=== PATIENT | female | born 1940 | race Caucasian/White ===

== ENCOUNTER 2020-07-09 07:17 | Outpatient (REF) | payer MEDICARE, SELFPAY | END 2020-07-09 07:18 | disposition home or self-care (01) | LOC: HO.LAB 07:17 | PROVIDERS: Visit Provider Internal Medicine | DX: Z20.828 Contact with and (suspected) exposure to other viral communicable diseases (principal) | CPT/HCPCS: C9803; U0003 ==

== ENCOUNTER 2021-01-13 08:05 | Outpatient (REF) | payer MEDICARE, SELFPAY ==
[2021-01-13 09:18] LABS: MANUAL DIFF FLAG NO
[2021-01-13 09:25] LABS: Basophils Percent Auto 0.7 % (0-2); Eosinophils Absolute Auto 0.2 X10*3/uL (0.0-0.4); Eosinophils Percent Auto 3.1 % (0-4); Hematocrit 43.6 % (37-47); Hemoglobin 14.4 g/dl (12.0-16.0); Imm Gran Abs Auto 0.01 X10*3/uL (0.00-0.03); Imm Gran Pct Auto 0.2 % (0.0-0.4); Lymphocytes Absolute Auto 1.3 X10*3/uL (1.2-4.9); Lymphocytes Percent Auto 23.2 % (20-40); Mean Corpuscular Hemoglobin 31.4 pg (27.0-33.0); Mean Corpuscular Volume 95.2 fL (80-98); Mean Platelet Volume 10.5 fL (9.4-12.3); Monocytes Absolute Auto 0.6 X10*3/uL (0.1-1.2); Monocytes Percent Auto 10.5 % (2-11); Neutrophils Absolute Auto 3.5 X10*3/uL (2.0-8.3); Neutrophils Percent Auto 62.3 % (45-73); Platelet Count 270 X10*3/uL (160-400); Red Blood Count 4.58 X10*6/uL (4.20-5.50); Red Cell Distribution Width 13.4 % (11.0-16.0); White Blood Count 5.6 X10*3/uL (4.8-10.8)
[2021-01-13 09:49] LABS: Alanine Aminotransferase 21 U/L (0-31); Albumin Level 3.7 g/dL (3.5-5.0); Alkaline Phosphatase 70 U/L (39-117); Anion Gap 12 (12-20); Aspartate Amino Transferase 24 U/L (5-31); Bilirubin Total 0.9 mg/dL (0.0-1.0); Blood Urea Nitrogen 20 mg/dL (9-16); Carbon Dioxide 29 mmol/L (22-29); Chloride 105 mmol/L (96-108); Cholesterol 122 mg/dL; Estimated Glomerular Filt Rate > 60; Glucose Random 118 mg/dL (60-115); HDL Cholesterol 41 mg/dL; LDL Cholesterol Calculated 63 mg/dl; Potassium 4.2 mmol/L (3.3-5.1); Sodium 142 mmol/L (135-145); Total Protein 7.5 g/dL (6.5-8.0); Triglycerides 90 mg/dL
[2021-01-13 10:11] LABS: TSH reflex Free T4 2.38 uIU/mL (0.32-4.0); Vitamin D 25-OH Total 27.3 ng/mL (>30)
[2021-01-13 14:35] LABS: Creatinine Urine 110.41 mg/dL; Microalbum/Creatinine Ratio Ur 79.7 ug/mg cr
== END 2021-01-13 08:06 | disposition home or self-care (01) ==
LOC: HO.10HDL 08:05
PROVIDERS: Visit Provider Internal Medicine
DX: Z00.00 Encounter for general adult medical examination without abnormal findings (principal); E11.9 Type 2 diabetes mellitus without complications; E78.00 Pure hypercholesterolemia, unspecified; I10 Essential (primary) hypertension; E55.9 Vitamin D deficiency, unspecified
CPT/HCPCS: 36415; 80053; 80061; 82043; 82306; 84443; 85025

== ENCOUNTER 2021-03-20 09:48 | Outpatient (REF) | payer MEDICARE, SELFPAY ==
--- NOTE | ~2021-03-20 | MM_ITS ---
EXAMINATION: MM SCREENING DIGITAL BREAST TOMOSYNTHESIS, BILATERAL CLINICAL INFORMATION: Screening. Asymptomatic. The lifetime risk of breast cancer based on the Tyrer-Cuzick Model is 1%. COMPARISON: Mammography: 03/14/2020, 12/13/2018, 12/12/2017 TECHNIQUE: Digital breast tomosynthesis is performed in both the craniocaudal and mediolateral oblique views along with computer-aided detection (CAD). Synthesized 2D images are generated from the tomosynthesis. Additional left CC view is provided. FINDINGS: The breasts are almost entirely fatty (ACR BI-RADS breast composition Category a). There are no significant masses, abnormal calcifications, or other abnormalities. The axilla and skin contours are unremarkable. No significant changes. MM/MM tomosynthesis screening BI IMPRESSION: No mammographic evidence of malignancy. ASSESSMENT: BI-RADS 1: Negative RECOMMENDATION: Routine annual mammography screening. This patient's information was entered into a reminder system with a target due date for their next mammogram.
== END 2021-03-20 09:49 | disposition home or self-care (01) ==
LOC: HO.MAMMO 09:48
PROVIDERS: PCP Internal Medicine; Visit Provider Internal Medicine
DX: Z12.31 Encounter for screening mammogram for malignant neoplasm of breast (principal)
CPT/HCPCS: 77063; 77067

== ENCOUNTER 2022-03-23 09:37 | Outpatient (REF) | payer MEDICARE, SELFPAY ==
--- NOTE | ~2022-03-23 | MM_ITS ---
EXAMINATION: MM SCREENING DIGITAL BREAST TOMOSYNTHESIS, BILATERAL CLINICAL INFORMATION: Screening. Asymptomatic. The lifetime risk of breast cancer based on the Tyrer-Cuzick Model is 0.6%. COMPARISON: Mammography: March 20, 2021 and studies dating back to November 19, 2013 TECHNIQUE: Digital breast tomosynthesis is performed in both the craniocaudal and mediolateral oblique views along with computer-aided detection (CAD). Synthesized 2D images are generated from the tomosynthesis. FINDINGS: The breasts are almost entirely fatty (ACR BI-RADS breast composition Category a). There are no significant masses, abnormal calcifications, or other abnormalities. MM/MM tomosynthesis screening BI IMPRESSION: No significant changes from prior exam. ASSESSMENT: BI-RADS 1: Negative RECOMMENDATION: Routine annual mammography screening. This patient's information was entered into a reminder system with a target due date for their next mammogram.
== END 2022-03-23 09:38 | disposition home or self-care (01) ==
LOC: HO.MAMMO 09:37
PROVIDERS: Visit Provider Internal Medicine
DX: Z12.31 Encounter for screening mammogram for malignant neoplasm of breast (principal)
CPT/HCPCS: 77063; 77067

== ENCOUNTER 2022-04-13 07:57 | Outpatient (REF) | payer MEDICARE, SELFPAY ==
[2022-04-13 10:45] LABS: Hematocrit 38.9 % (37.0-47.0); Hemoglobin 14.1 g/dl (12.0-16.0); Mean Corpuscular HGB Conc 36.2 g/dl (31.0-35.0); Mean Corpuscular Hemoglobin 33.9 pg (27.0-33.0); Mean Corpuscular Volume 93.5 fL (80.0-98.0); Mean Platelet Volume 10.4 fL (9.4-12.3); Platelet Count 289 X10*3/uL (160-400); Red Blood Count 4.16 X10*6/uL (4.20-5.50); White Blood Count 5.9 X10*3/uL (4.8-10.8)
[2022-04-13 11:01] LABS: Alanine Aminotransferase 25 U/L (0-31); Albumin Level 3.6 g/dL (3.5-5.0); Alkaline Phosphatase 61 U/L (39-117); Anion Gap 15 (12-20); Aspartate Amino Transferase 26 U/L (5-31); Bilirubin Total 0.9 mg/dL (0.0-1.0); Blood Urea Nitrogen 19 mg/dL (9-16); Carbon Dioxide 27 mmol/L (22-29); Chloride 100 mmol/L (96-108); Cholesterol 113 mg/dL; Estimated Glomerular Filt Rate > 60; Glucose Fasting 101 mg/dL (60-99); HDL Cholesterol 35 mg/dL; LDL Cholesterol Calculated 63 mg/dl; Potassium 4.6 mmol/L (3.3-5.1); Sodium 137 mmol/L (135-145); Total Protein 7.4 g/dL (6.5-8.0); Triglycerides 75 mg/dL
[2022-04-13 11:22] LABS: TSH reflex Free T4 2.53 uIU/mL (0.32-4.0)
[2022-04-13 14:15] LABS: Creatinine Urine 108.04 mg/dL; Microalbum/Creatinine Ratio Ur 11.1 ug/mg cr
== END 2022-04-13 07:58 | disposition home or self-care (01) ==
LOC: HO.10HDL 07:57
PROVIDERS: Visit Provider Internal Medicine
DX: Z00.00 Encounter for general adult medical examination without abnormal findings (principal); I10 Essential (primary) hypertension; R53.83 Other fatigue
CPT/HCPCS: 36415; 80053; 80061; 82043; 84443; 85027

== ENCOUNTER 2023-03-25 08:21 | Outpatient (REF) | payer MEDICARE, SELFPAY | END 2023-03-25 08:22 | disposition home or self-care (01) | LOC: HO.MAMMO 08:21 | PROVIDERS: PCP Internal Medicine; Visit Provider Internal Medicine | DX: Z12.31 Encounter for screening mammogram for malignant neoplasm of breast (principal) | CPT/HCPCS: 77063; 77067 ==

== ENCOUNTER → 2023-03-25 08:30 | Outpatient (BNV) | payer MEDICARE, SELFPAY | PROVIDERS: PCP Internal Medicine; Visit Provider Radiology Diagnostic Radiology | DX: Z12.31 Encounter for screening mammogram for malignant neoplasm of breast (principal) | CPT/HCPCS: 77063; 77067 ==

== ENCOUNTER 2023-05-03 07:50 | Outpatient (REF) | payer MEDICARE, SELFPAY ==
[2023-05-03 11:03] LABS: MANUAL DIFF FLAG NO
[2023-05-03 11:04] LABS: Basophils Absolute Auto 0.1 X10*3/uL (0.0-0.2); Basophils Percent Auto 0.9 % (0-2); Eosinophils Absolute Auto 0.2 X10*3/uL (0.0-0.4); Eosinophils Percent Auto 2.8 % (0-4); Hematocrit 38.1 % (37.0-47.0); Hemoglobin 14.2 g/dl (12.0-16.0); Imm Gran Abs Auto 0.03 X10*3/uL (0.00-0.03); Imm Gran Pct Auto 0.5 % (0.0-0.4); Lymphocytes Absolute Auto 1.3 X10*3/uL (1.2-4.9); Mean Corpuscular HGB Conc 37.3 g/dl (31.0-35.0); Mean Corpuscular Hemoglobin 36.3 pg (27.0-33.0); Mean Corpuscular Volume 97.4 fL (80.0-98.0); Mean Platelet Volume 11.1 fL (9.4-12.3); Monocytes Absolute Auto 0.6 X10*3/uL (0.1-1.2); Neutrophils Absolute Auto 3.6 x10*3/uL (2.0-8.3); Neutrophils Percent Auto 62.8 % (45-73); Platelet Count 248 X10*3/uL (160-400); Red Blood Count 3.91 X10*6/uL (4.20-5.50); Red Cell Distribution Width 13.7 % (11.0-16.0); White Blood Count 5.7 X10*3/uL (4.8-10.8)
[2023-05-03 11:28] LABS: Estimated Average Glucose 128 mg/dL; Hemoglobin A1c % 6.1 % (<6.0)
[2023-05-03 11:37] LABS: Creatinine Urine 27.52 mg/dL; Microalbumin Urine < 5.0 mg/L
[2023-05-03 11:38] LABS: Alanine Aminotransferase 19 U/L (0-31); Albumin Level 3.6 g/dL (3.5-5.0); Alkaline Phosphatase 62 U/L (39-117); Anion Gap 13 (12-20); Aspartate Amino Transferase 25 U/L (5-31); Bilirubin Total 0.8 mg/dL (0.0-1.0); Blood Urea Nitrogen 23 mg/dL (9-16); Calcium 10.2 mg/dL (8.4-10.2); Carbon Dioxide 26 mmol/L (22-29); Chloride 103 mmol/L (96-108); Cholesterol 110 mg/dL (<200); Estimated Glomerular Filt Rate > 60; Glucose Random 102 mg/dL (60-115); HDL Cholesterol 38 mg/dL (>40); LDL Cholesterol Calculated 57 mg/dL (<100); Potassium 3.9 mmol/L (3.3-5.1); Sodium 138 mmol/L (135-145); Total Protein 7.4 g/dL (6.5-8.0); Triglycerides 75 mg/dL (<150)
== END 2023-05-03 07:51 | disposition home or self-care (01) ==
LOC: HO.10HDL 07:50
PROVIDERS: Visit Provider Internal Medicine
DX: I10 Essential (primary) hypertension (principal); E78.2 Mixed hyperlipidemia; E11.9 Type 2 diabetes mellitus without complications
CPT/HCPCS: 36415; 80053; 80061; 82043; 82570; 83036; 85025

== ENCOUNTER 2024-03-30 09:57 | Outpatient (REF) | payer MEDICARE, SELFPAY ==
--- NOTE | ~2024-03-30 | MM_ITS ---
EXAMINATION: MM SCREENING DIGITAL BREAST TOMOSYNTHESIS, BILATERAL CLINICAL INFORMATION: Screening. Asymptomatic. COMPARISON: Mammography: Comparison is made with available priors TECHNIQUE: Digital breast tomosynthesis is performed in both the craniocaudal and mediolateral oblique views along with computer-aided detection (CAD). Synthesized 2D images are generated from the tomosynthesis. FINDINGS: There are scattered areas of fibroglandular density (ACR BI-RADS breast composition Category b). There are no significant masses, abnormal calcifications, or other abnormalities. MM/MM tomosynthesis screening BI IMPRESSION: No mammographic evidence of malignancy. ASSESSMENT: BI-RADS BI-RADS 1 - Negative RECOMMENDATION: Routine annual mammography screening. 1 year F/U This examination should not preclude the clinical evaluation of a suspicious palpable abnormality. This patient's information was entered into a reminder system with a target due date for their next mammogram. Electronically signed by: Catrachita Rey DO 04/20/2024 10:40 PM EDT
== END 2024-03-30 09:58 | disposition home or self-care (01) ==
LOC: HO.MAMMO 09:57
PROVIDERS: PCP Internal Medicine; Visit Provider Internal Medicine
DX: Z12.31 Encounter for screening mammogram for malignant neoplasm of breast (principal)
CPT/HCPCS: 77063; 77067

== ENCOUNTER → 2024-03-30 10:00 | Outpatient (BNV) | payer MEDICARE, SELFPAY | PROVIDERS: PCP Internal Medicine; Visit Provider Internal Medicine | DX: Z12.31 Encounter for screening mammogram for malignant neoplasm of breast (principal) | CPT/HCPCS: 77063; 77067 ==

== ENCOUNTER 2024-04-24 07:49 | Outpatient (REF) | payer MEDICARE, SELFPAY ==
[2024-04-24 08:00] LABS: MANUAL DIFF FLAG NO
[2024-04-24 08:26] LABS: Basophils Absolute Auto 0.1 X10*3/uL (0.0-0.2); Basophils Percent Auto 0.8 % (0-2); Eosinophils Absolute Auto 0.1 X10*3/uL (0.0-0.4); Eosinophils Percent Auto 2.1 % (0-4); Hematocrit 42.5 % (37.0-47.0); Imm Gran Abs Auto 0.01 X10*3/uL (0.00-0.03); Imm Gran Pct Auto 0.2 % (0.0-0.4); Lymphocytes Absolute Auto 1.5 X10*3/uL (1.2-4.9); Lymphocytes Percent Auto 24.3 % (20-40); Mean Corpuscular HGB Conc 32.9 g/dl (31.0-35.0); Mean Corpuscular Hemoglobin 30.8 pg (27.0-33.0); Mean Corpuscular Volume 93.4 fL (80.0-98.0); Monocytes Absolute Auto 0.8 X10*3/uL (0.1-1.2); Monocytes Percent Auto 12.3 % (2-11); Neutrophils Absolute Auto 3.7 x10*3/uL (2.0-8.3); Neutrophils Percent Auto 60.3 % (45-73); Platelet Count 323 X10*3/uL (160-400); Red Blood Count 4.55 X10*6/uL (4.20-5.50); Red Cell Distribution Width 13.7 % (11.0-16.0); White Blood Count 6.2 X10*3/uL (4.8-10.8)
[2024-04-24 08:36] LABS: Estimated Average Glucose 131 mg/dL; Hemoglobin A1C 155.0812 umol/L; Hemoglobin A1c % 6.2 % (<6.0)
[2024-04-24 08:48] LABS: Alanine Aminotransferase 26 U/L (0-31); Albumin Level 3.6 g/dL (3.5-5.0); Alkaline Phosphatase 90 U/L (39-117); Anion Gap 11 (12-20); Aspartate Amino Transferase 27 U/L (5-31); Bilirubin Total 0.6 mg/dL (0.0-1.0); Blood Urea Nitrogen 23 mg/dL (9-16); Calcium 10.8 mg/dL (8.4-10.2); Carbon Dioxide 30 mmol/L (22-29); Chloride 103 mmol/L (96-108); Cholesterol 105 mg/dL (<200); Estimated Glomerular Filt Rate > 60; Glucose Random 116 mg/dL (60-115); HDL Cholesterol 35 mg/dL (>40); LDL Cholesterol Calculated 56 mg/dL (<100); Potassium 4.5 mmol/L (3.3-5.1); Sodium 139 mmol/L (135-145); Total Protein 7.6 g/dL (6.5-8.0); Triglycerides 70 mg/dL (<150)
[2024-04-24 09:06] LABS: Creatinine Urine 29.31 mg/dL; Microalbum/Creatinine Ratio Ur 27.2 ug/mg cr (<30)
== END 2024-04-24 07:50 | disposition home or self-care (01) ==
LOC: HO.LAB 07:49
PROVIDERS: PCP Internal Medicine; Visit Provider Internal Medicine
DX: E11.9 Type 2 diabetes mellitus without complications (principal); I10 Essential (primary) hypertension; E78.2 Mixed hyperlipidemia
CPT/HCPCS: 36415; 80053; 80061; 82043; 82570; 83036; 85025

== ENCOUNTER 2025-01-31 01:03 | Emergency (ER) | payer MEDICARE, SELFPAY ==
[2025-01-31 01:04] VITALS: BP 127/70; PULSE 99; RESP 17; TEMP 36.5; O2SAT 98; BMI 33.9
--- NOTE | 2025-01-31 01:18 | ED_ITS ---
HPI - Allergic Reaction General Chief complaint: Skin/Abscess/Foreign Body Stated complaint: hives/bumps on arms and body Time Seen by Provider: 01/31/25 01:07 Source: patient and family Mode of arrival: ambulatory Limitations: no limitations History of Present Illness ED Provider: ESTER BROWN narrative: 84 yo female with PMH of HTN, HLD who was working in her garden 2 days ago didn't notice anything unusual but started with itchy hives on UE and her chest/abdomen. No oral swelling or diff breathing. She notes she tried some gold mckay powder but no relief. She does have hx of season allergies and has taken claritin in the past. MD complaint: hives Onset (ago): day(s) (2) Exposure: plant Symptoms: rash and itching Severity: moderate Treatment prior to arrival: none Previous Allergic Reaction History: none Related Data Previous Rx's ?Medication ?Instructions ?Recorded famotidine 20 mg tablet (Pepcid) 20 mg PO DAILY abdomi nal 01/31/25 discomfort #10 tabs hydrocortisone 1 % topical cream 1 appl topical TID MI N rash #28.35 01/31/25 grams prednisone 20 mg tablet 40 mg (2 x 20 mg) PO DAILY 4 days 01/31/25 #8 tabs Allergies Allergy/AdvReac Type Severity Reaction Status Date / Time No Known Allergies Allergy Verified 01/31/25 01:08 Review of Systems Review of Systems: Constitutional : No Fever, No Chills ENT/Mouth : no oral swelling, No Hoarseness, No Swallowing Difficulty Eyes: No Eye Pain, No Swelling, No Redness Cardiovascular : No Chest Pain, No SOB Respiratory : No Cough, No Sputum Gastrointestinal : No Nausea, No Vomiting, No Diarrhea, No abdominal Pain Genitourinary : No Dysuria, No Urinary Frequency Musculoskeletal : No Joint Swelling Skin : No Skin Lesions, positive rash All other systems reviewed and are negative FOR[facility]LY [facility] Past Medical History Attestation statement: The following information was validated with the patient. Source: old records reviewed Medical History Hyperlipidemia HTN (hypertension) Social History Social History (Updated 01/31/25 @ 01:22 by Gloria Brannon DO) Patient Tobacco Use Status: Tobacco use Unknown Physical Exam ED Vital Signs: Vital Signs - 24 hr 01/31/25 01:04 Temperature 97.7 F Pulse Rate 99 Respiratory Rate 17 Blood Pressure 127/70 Pulse Oximetry 98 Oxygen Delivery Method Room Air BMI result Body Mass Index 33.9 Appearance: Alert. Oriented X3. No acute distress. Eyes: Pupils equal, round and reactive to light. ENT: Pharynx normal. No swelling Neck: Normal inspection. Neck supple. CVS: Normal heart rate and rhythm. Pulses normal. Respiratory: No respiratory distress. Breath sounds normal. Abdomen: Soft and nontender. Skin: Skin warm and dry. Normal skin color. Extremities: No lower extremity edema. raised hives on both inner arms but no cellulitis, she has similar hives noted on anterior trunk Neuro: Oriented X 3. No motor deficit. No sensory deficit. Medical Decision Making Medical Decision Making MDM Narrative: 84 yo female with PMH of HTN, HLD here with hives on trunk and arms after working in the garden. No resp or oral issues, no signs of cellulitis. She has been okay with claritin in the past - at this time will start on topical hydrocortisone as well as claritin, pepcid, prednisone. Given precautions to return and instructed to not use same gardening clothes Differential Diagnosis Differential Diagnoses: The differential diagnosis associated with the presentation includes hives, allergic reaction Admission/Observation Consideration of admission/observation: Escalation of care including admission/observation considered no signs of anaphylaxis and no resp issues - stable for outpatient meds Independent Historian Clinical information obtained from an independent historian. History obtained from or confirmed by: Other (daughter) External Record Review External record reviewed: Outpatient record Prescription Management I considered prescription management with: Other Discharge Plan Discharge Clinical Impression: Allergic reaction Qualifiers: Encounter type: initial encounter Qualified Code(s): T78.40XA - Allergy, unspecified, initial encounter Patient Disposition: Home, Self-Care Instructions: General Allergic Reaction (ED) Additional Instructions: please make sure you are not re-contaminating yourself with anything from the garden take all medications as prescribed take the prednisone with food return for worsening symptoms, difficulty breathing or swallowing PLEASE BUY CLARITIN 10MG OVER THE COUNTER TAKE FOR 10 DAYS Prescriptions: New prednisone 20 mg tablet 40 mg PO DAILY 4 Days Qty: 8 0RF famotidine [Pepcid] 20 mg tablet 20 mg PO DAILY Qty: 10 0RF hydrocortisone 1 % cream 1 appl topical TID PRN (Reason: rash) Qty: 28.35 0RF Rx Instructions: do not apply to face Print Language: Slovenian
[2025-01-31 01:40] VITALS: BP 127/70; PULSE 99; RESP 17; TEMP 36.5; O2SAT 98
== END 2025-01-31 01:41 | disposition home or self-care (01) ==
PROVIDERS: Emergency Provider Emergency Medicine; PCP Internal Medicine
DX: L50.0 Allergic urticaria (principal); L29.9 Pruritus, unspecified
CPT/HCPCS: 99283; 99284

== ENCOUNTER 2025-04-05 10:50 | Outpatient (REF) | payer MEDICARE, SELFPAY ==
--- NOTE | ~2025-04-05 | MM_ITS ---
EXAMINATION: MM SCREENING DIGITAL BREAST TOMOSYNTHESIS, BILATERAL CLINICAL INFORMATION: Screening. Asymptomatic. COMPARISON: Mammography: Comparison is made with available priors TECHNIQUE: Digital breast mammography with tomosynthesis is performed in both the craniocaudal and mediolateral oblique views along with computer-aided detection (CAD). FINDINGS: There are scattered areas of fibroglandular density (ACR BI-RADS breast composition Category b). There are no significant masses, abnormal calcifications, or other abnormalities. MM/MM tomosynthesis screening BI IMPRESSION: No mammographic evidence of malignancy. ASSESSMENT: BI-RADS BI-RADS 1 - Negative RECOMMENDATION: Routine annual mammography screening. 1 year F/U This examination should not preclude the clinical evaluation of a suspicious palpable abnormality. This patient's information was entered into a reminder system with a target due date for their next mammogram. Electronically signed by: Catrachita Rey DO 04/08/2025 05:40 PM EDT
--- OUTSIDE RECORDS SUMMARY | 2025-04-05 11:54 | XMS_ITS | Patient Health Record ---
Author Organization [facility] Address [address] [place] [address] Care Team Providers Care Airport Maintenance Chief Name Role Phone Ladarius Allen MD Primary Care Provider Unavailab Diomedes Painting Unavailable [phone] Reason For Referral No Information Medications Medication SIG (Take, Route, Frequency, Duration) Notes Start Date End Date Status amLODIPine Besylate 5 MG 1 tablet Orally Once a day Active Losartan Potassium-HCTZ 100-25 MG 1 tablet Orally Once a day Active Colyte w Flavor Packs 240 GM as directed Orally as directed for 1 day(s) 10/05/2014 Active Atorvastatin Calcium 40 MG 1 tablet Oral ly Once a day Active Citalopram Hydrobromide 20 MG 1 tablet Orally Once a day Active Immunizations Vaccine Route Administration Date Status Comme nts Flu vaccine no Preserv 3 and > Unknown 06/12/2014 Admin istered Problems Problem Type SNOMED Code ICD Code Onset Dates Problem Status W/U Status Risk Notes Problem Pre-surgery evaluation (563228606) Other specified pre-operative examination (V72.83) Active confirmed Problem Family History of Cancer of Colon (Situation) (147731592) Family history of colon cancer (V16.0) Active confirmed Problem Colon cancer screening (656347912) Colon cancer screening (V76.51) Active confirmed Problem Hypertension (13053152) Hypertension (401.9) Active confirmed Plan Of Treatment Future Test Test Name Order Date COLONOSCOPY 10/03/2014 Insurance Providers Payer Name Payer Address Payer Phone Subscriber Number Group Number Insured Name Patient Relationship to Insured Coverage Start Date Coverage End Date MEDICARE OF [place] [address] [place] [address] [id number] BRAVO HOFFMANN Self - patient is the insured [facility] [address] [place] [address] [phone] [id number] BRAVO HOFFMANN Self - patient is the insured Medical (General) History Medical History History ICD Code Colonoscopy 10-02-2009 and 200 4 neg except for hyperplastic polyps, diverticulosis, and internal hemorrhoids Hypertension Hyperlipidemia Depression Denies IA,DM,CVA,Lung disease,renal dise ase Surgical History Surgery Date(Month/Year) complete hysterectomy surgery on left leg for a fracture
== END 2025-04-05 10:51 | disposition home or self-care (01) ==
LOC: HO.MAMMO 10:50
PROVIDERS: PCP Internal Medicine; Visit Provider Internal Medicine
DX: Z12.31 Encounter for screening mammogram for malignant neoplasm of breast (principal)
CPT/HCPCS: 77063; 77067

== ENCOUNTER → 2025-04-05 11:00 | Outpatient (BNV) | payer MEDICARE, SELFPAY | PROVIDERS: PCP Internal Medicine; Visit Provider Internal Medicine | DX: Z12.31 Encounter for screening mammogram for malignant neoplasm of breast (principal) | CPT/HCPCS: 77063; 77067 ==

== ENCOUNTER 2025-04-17 07:41 | Outpatient (REF) | payer MEDICARE, SELFPAY ==
--- OUTSIDE RECORDS SUMMARY | 2025-02-15 06:10 | XMS_ITS ---
Author Organization [facility] Address [facility] [place], [place] [id number] Care Team Providers Care Color Receiver Name Role Phone JULIUS ROBERTS Primary Care Provider [phone] REASON FOR VISIT Medication confusion Encounters Encounter Location Date Provider Diagnosis [address] [address] 02/15/2025 JULIUS ROBERTS PLAN OF TREATMENT Next Appt Details Provider Name:JULIUS ROBERTS , 05/29/2025 01:30:00 PM, [address] [place] [address], [phone], Provider Name:JULIUS ROBERTS , 05/29/2025 02:00:00 PM, [address] [place] [address], [phone],
--- OUTSIDE RECORDS SUMMARY | 2025-02-19 07:09 | XMS_ITS ---
Author Organization [facility] Address [facility] [place], [place] [id number] Care Team Providers Care Engineer Design And Construction Name Role Phone JULIUS ROBERTS Primary Care Provider [phone] REASON FOR VISIT (FYI) Betamethasone cream Encounters Encounter Location Date Provider Diagnosis [address] [address] 02/19/2025 JULIUS ROBERTS PLAN OF TREATMENT Next Appt Details Provider Name:JULIUS ROBERTS , 05/29/2025 01:30:00 PM, [address] [place] [address], [phone], Provider Name:JULIUS ROBERTS , 05/29/2025 02:00:00 PM, [address] [place] [address], [phone],
--- OUTSIDE RECORDS SUMMARY | 2025-02-19 14:40 | XMS_ITS ---
Author Organization [facility] Address [address] [place], [place] [id number] Care Team Providers Care Electric Deicer Assembler Name Role Phone JULIUS ROBERTS Primary Care Provider [phone] REASON FOR VISIT RE:Medication confusion MEDICATIONS Medication SIG (Take, Route, Frequency, Duration) Notes Start Date End Date Status Betamethasone Valerate 0.1 % 1 application Externally Twice a day for 30 day(s) 02/20/2025 Active Encounters Encounter Location Date Provider Diagnosis [address] [address] 02/19/2025 JULIUS KWONFORD Rash R21 ASSESSMENTS Encounter Date Diagnosis Assessment Notes Treatment Notes Treatment Clinical Notes Section Notes 02/19/2025 Rash (ICD-10 - R21) PLAN OF TREATMENT Medication Medication Name Sig Start Date Stop Date Notes Betamethasone Valerate 0.1 % 1 applicati on Externally Twice a day for 30 day(s) 02/20/2025 Next Appt Details Provider Name:JULIUS Mathew ARMANDO , 05/29/2025 01:30:00 PM, [address] [place] [address], [phone], Provider Name:JULIUS KWONFORD , 05/29/2025 02:00:00 PM, [address] [place] [address], [phone],
--- OUTSIDE RECORDS SUMMARY | 2025-03-07 05:45 | XMS_ITS ---
Author Organization [facility] Address [address] [place], [place] [id number] Care Team Providers Care Blacksmith Supervisor Name Role Phone JULIUS ROBERTS Primary Care Provider ALLERGIES No Known Allergies REASON FOR VISIT 4mo MEDICATIONS Medication SIG (Take, Route, Frequency, Duration) Notes Start Date End Date Status Valsartan-hydroCHLOROthiazi de 160-25 MG 1 tablet Orally Once a day Active Citalopram Hydrobromide 10 MG 1 tablet Orally Once a day for 90 days Active Atorvastatin Calcium 40 MG 1 tablet Oral ly Once a day Active Betamethasone Valerate 0.1 % 1 application Externally Twice a day for 30 day(s) 02/20/2025 Active amLODIPine Besylate 2.5 MG 1 tablet Oral Once a day 11/29/2022 Active Flonase Allergy Relief 50 MCG/ACT spray 2 spray by intranasal route every day in each nostril Nasal 01/29/2015 Active SOCIAL HISTORY Tobacco Use: Social History Observation Description Date Details (start date - stop date) Former Smoker NA - NA Sex Assigned At : Social History Observation Description Sex Assigned At Unknown Smoking Question Answer Notes Are you a: former smoker How long has it been since you last smoked? > 10 years VITAL SIGNS Height 63.50 in 03/07/2025 Weight 182.0 lbs 03/07/2025 Blood pressure systolic 122 mm Hg 03/07/20 25 Blood pressure diastolic 70 mm Hg 025 BMI 31.73 kg/m2 03/07/2025 Encounters Encounter Location Date Provider Diagnosis [facility] [address] [place] [address] 03/07/2025 JULIUS ROBERTS Essential (primary) hypertension I10 ; Type 2 diabetes mellitus without complication, without long-term current use of insulin E11.9 ; Mixed hyperlipidemia E78.2 and Rash R21 ASSESSMENTS Encounter Date Diagnosis Assessment Notes Treatment Notes Treatment Clinical Notes Section Notes 03/07/2025 Essential (primary) hypertension (ICD-10 - I10) 1. Hypertension: Well-controlled on present therapy. No changes made today 2. Type 2 diabetes mellitus: Will update A1c with current diet control 3. Hyperlipidemia: Will update profile on atorvastatin 4. Rash: Appears resolved. Will taper off betamethasone ointment 03/07/2025 Type 2 diabetes mellitus without complication, without long-term current use of insulin (ICD-10 - E11.9) 1. Hypertension: Well-controlled on present therapy. No changes made today 2. Type 2 diabetes mellitus: Will update A1c with current diet control 3. Hyperlipidemia: Will update profile on atorvastatin 4. Rash: Appears resolved. Will taper off betamethasone ointment 03/07/2025 Mixed hyperlipidemia (ICD-10 - E78.2) 1. Hypertension: Well-controlled on present therapy. No changes made today 2. Type 2 diabetes mellitus: Will update A1c with current diet control 3. Hyperlipidemia: Will update profile on atorvastatin 4. Rash: Appears resolved. Will taper off betamethasone ointment 03/07/2025 Rash (ICD-10 - R21) 1. Hypertension: Well-controlled on present therapy. No changes made today 2. Type 2 diabetes mellitus: Will update A1c with current diet control 3. Hyperlipidemia: Will update profile on atorvastatin 4. Rash: Appears resolved. Will taper off betamethasone ointment PLAN OF TREATMENT Medication Medication Name Sig Start Date Stop Date Notes Valsartan-hydroCHLOROthiazid e 160-25 MG 1 tablet Orally Once a day Atorvastatin Calcium 40 MG 1 tablet Orally Once a day amLODIPine Besylate 2.5 MG 1 tablet Oral Once a day 2022 Future Test Test Name Order Date CBC With Differential/[id number] Lipid Panel-[id number] 03/07/2025 Comp. Metabolic Panel [id number] 2024 Next Appt Details Provider Name:JULIUS ROBERTS , 05/29/2025 01:30:00 PM, [address] [place] [address], [phone], Provider Name:JULIUS ROBERTS , 05/29/2025 02:00:00 PM, [address] [place] [address], [phone], Progress Notes * Examination Category Sub-Category Detail Notes Category Not es General Examination Heart: RSR, normal S1S2 Lungs: clear to auscultatio n Extremities: no edema General Appearance no apparent distress , pleasant Psych: alert, oriented X 3 Other normal affect History and Physical Notes * HPI (History of Present Illness) Category Sub-Category Detail Notes Category Not es General Patient is feeling well Rash resolved No chest pain, palpitations or SOB
--- OUTSIDE RECORDS SUMMARY | 2025-03-08 02:43 | XMS_ITS ---
Author Organization [facility] Address [facility] [place], [place] [id number] Care Team Providers Care Cheese Pancake Roller Name Role Phone JULIUS ROBERTS Primary Care Provider [phone] REASON FOR VISIT lab Encounters Encounter Location Date Provider Diagnosis [address] [address] 03/08/2025 JULIUS ROBERTS PLAN OF TREATMENT Next Appt Details Provider Name:JULIUS ROBERTS , 05/29/2025 01:30:00 PM, [address] [place] [address], [phone], Provider Name:JULIUS ROBERTS , 05/29/2025 02:00:00 PM, [address] [place] [address], [phone],
--- OUTSIDE RECORDS SUMMARY | 2025-04-17 07:45 | XMS_ITS | Patient Health Record ---
Author Organization [facility] Address [address], [place] [id number] Care Team Providers Care Cartridge Maker Name Role Phone JULIUS ROBERTS Primary Care Provider [facility], NURSING [facility] [phone] ALLERGIES No Known Allergies REASON FOR REFERRAL No Information MEDICATIONS Medication SIG (Take, Route, Frequency, Duration) Notes Start Date End Date Status Valsartan-hydroCHLOROthiazi de 160-25 MG 1 tablet Orally Once a day Active Citalopram Hydrobromide 10 MG 1 tablet Orally Once a day for 90 days Active Atorvastatin Calcium 40 MG 1 tablet Oral ly Once a day Active amLODIPine Besylate 2.5 MG 1 tablet Oral Once a day 11/29/2022 Active Flonase Allergy Relief 50 MCG/ACT spray 2 spray by intranasal route every day in each nostril Nasal 01/29/2015 Active Betamethasone Valerate 0.1 % 1 application Externally Twice a day for 30 day(s) 02/20/2025 Active IMMUNIZATIONS Vaccine Route Administration Date Status Comme nts Influenza, Fluzone HD 65+ IM Intramuscular 05/27/2023 Admi nistered Influenza, Fluzone HD 65+ IM Intramuscular 04/17/2024 Admi nistered Pfizer COVID-19,mRNA, LNP-S, PF, 30mcg/0.3mL dose Unknown 09/14/2020 Administered Pfizer COVID-19,mRNA, LNP-S, PF, 30mcg/0.3mL dose Unknown 10/05/2020 Administered Pneumococcal Prevnar 13 IM Intramuscular 08/18/2006 Admini stered Pneumococcal Prevnar 13 IM Intramuscular 05/26/2015 Admini stered Pneumococcal, PPV 23 Unknown 08/18/2006 Administered [id number] IM Intramuscular 11/05/2024 Administered SARSCOV2 VAC BVL 3MCG/0.2ML Pfizer Unknown 06/01/2021 Administered Td (Tetanus Diphtheria) Unknown 05/01/2008 Administered Zoster recombinant SC Subcutaneous 12/31/2007 Administered SOCIAL HISTORY Tobacco Use: Social History Observation Description Date Details (start date - stop date) Former Smoker NA - NA Sex Assigned At : Social History Observation Description Sex Assigned At Unknown Smoking Question Answer Notes Are you a: former smoker How long has it been since you last smoked? > 10 years Alcohol Screen Question Answer Notes Did you have a drink contain ing alcohol in the past year? Yes How often did you have a dri nk containing alcohol in the past year? Monthly or less (1 point) How many drinks did you have on a tpical day when you were drinking in the past year? 1 or 2 (0 points) How often did you have six o r more drinks on one occassion in the past year? Never (0 points) Points 1 Interpretation Negative PROBLEMS Problem Type ICD Code Onset Dates Problem Status W/U Status Risk SNOMED Code Notes Problem Essential (primary) hypertension (I10) Active confirmed 74182604 Problem Overactive bladder (N32.81) Active confirmed 545034150 Problem Other obesity due to excess calories (E66.09) Active confirmed 914266398 Problem Type 2 diabetes mellitus without complication, without long-term current use of insulin (E11.9) Active confirmed 223563913 Problem Body mass index [BMI] 32.0-32.9, adult (Z68.32) Active confirmed 440728253 Problem Persistent depressive disorder (F34.1) Active confirmed 0443735581 Problem Mixed hyperlipidemia (E78.2) 09/14/19 10 Active confirmed Mixed hyperlipidemia (974409127) VITAL SIGNS Blood pressure diastolic 70 mm Hg 03/07/2025 Height 63.50 in 03/07/2025 Blood pressure systolic 122 mm Hg 03/07/2025 Weight 182.0 lbs 03/07/2025 BMI 31.73 kg/m2 03/07/2025 Encounters Encounter Location Date Provider Diagnosis [facility] [address] [place] [phone] 04/17/2024 [facility] Type 2 diabetes mellitus without complication, without long-term current use of insulin E11.9 ; Essential (primary) hypertension I10 ; Mixed hyperlipidemia E78.2 and Persistent depressive disorder F34.[address] [address] 04/17/2024 [facility] Encounter for administration of vaccine Z23 [address] [address] 04/24/[address] [address] 07/06/2024 [facility] Type 2 diabetes mellitus without complication, without long-term current use of insulin E11.9 ; Essential (primary) hypertension I10 and Persistent depressive disorder F34.[address] [address] 07/08/[address] [address] 11/05/2024 [facility] Essential (primary) hypertension I10 ; Type 2 diabetes mellitus without complication, without long-term current use of insulin E11.9 ; Persistent depressive disorder F34.1 and Encounter for immunization Z23 [address] [place] [address] 11/06/[address] [address] 02/06/2025 [facility] Hives L50.9 and Essential (primary) hypertension I10 [facility] [address] [place] [phone] 02/13/2025 [facility] Rash R21 and Essenti al (primary) hypertension I10 [address] [address] 02/14/[address] [address] 02/14/[address] [address] 02/15/[address] [address] 02/19/[address] [address] 02/19/2025 JULIUS ROBERTS Rash R21 [facility] [address] [place] [address] 03/07/2025 JULIUS ROBERTS Essential (primary) hypertension I10 ; Type 2 diabetes mellitus without complication, without long-term current use of insulin E11.9 ; Mixed hyperlipidemia E78.2 and Rash R21 [facility] [address] [place] [address] 03/08/2025 JULIUS ROBERTS ASSESSMENTS Encounter Date Diagnosis Assessment Notes Treatment Notes Treatment Clinical Notes Section Notes 02/19/2025 Rash (ICD-10 - R21) 02/13/2025 Essential (primary) hypertension (ICD-10 - I10) 1. Rash: Looks most consistent with a contact dermatitis but source is unclear. Will trial betamethasone cream twice a day and will use CeraVe itch cream. She will let me know if she is not improving with these measures 2. Hypertension: Stable on present therapy. No changes made today 02/13/2025 Rash (ICD-10 - R21) 1. Rash: Looks most consistent with a contact dermatitis but source is unclear. Will trial betamethasone cream twice a day and will use CeraVe itch cream. She will let me know if she is not improving with these measures 2. Hypertension: Stable on present therapy. No changes made today 02/06/2025 Hives (ICD-10 - L50.9) 1. Hives: Cause unclear but appears to resolved after prednisone. She will call with any recurrence and we would reassess. 2. Hypertension: Stable on present therapy. No changes made today 02/06/2025 Essential (primary) hypertension (ICD-10 - I10) 1. Hives: Cause unclear but appears to resolved after prednisone. She will call with any recurrence and we would reassess. 2. Hypertension: Stable on present therapy. No changes made today 03/07/2025 Type 2 diabetes mellitus without complication, without long-term current use of insulin (ICD-10 - E11.9) 1. Hypertension: Well-controlled on present therapy. No changes made today 2. Type 2 diabetes mellitus: Will update A1c with current diet control 3. Hyperlipidemia: Will update profile on atorvastatin 4. Rash: Appears resolved. Will taper off betamethasone ointment 03/07/2025 Essential (primary) hypertension (ICD-10 - I10) 1. Hypertension: Well-controlled on present therapy. No changes made today 2. Type 2 diabetes mellitus: Will update A1c with current diet control 3. Hyperlipidemia: Will update profile on atorvastatin 4. Rash: Appears resolved. Will taper off betamethasone ointment 11/05/2024 Type 2 diabetes mellitus without complication, without long-term current use of insulin (ICD-10 - E11.9) 1. Hypertension: Stable on present regimen. No changes made today 2. Diabetes: We will update A1c on current diet control. She has been stable in recent months 3. Depression: Feels mood is well-controlled on citalopram. Will continue with present dosing 11/05/2024 Essential (primary) hypertension (ICD-10 - I10) 1. Hypertension: Stable on present regimen. No changes made today 2. Diabetes: We will update A1c on current diet control. She has been stable in recent months 3. Depression: Feels mood is well-controlled on citalopram. Will continue with present dosing 07/06/2024 Type 2 diabetes mellitus without complication, without long-term current use of insulin (ICD-10 - E11.9) 1 type 2 diabetes mellitus: Stable on present diet regimen. We will update A1c today 2. Hypertension: Well-controlled on present therapy. No changes made today 3. Depression: Stable on citalopram and sleeping well with trazodone. Will maintain present dosing 07/06/2024 Essential (primary) hypertension (ICD-10 - I10) 1 type 2 diabetes mellitus: Stable on present diet regimen. We will update A1c today 2. Hypertension: Well-controlled on present therapy. No changes made today 3. Depression: Stable on citalopram and sleeping well with trazodone. Will maintain present dosing 04/17/2024 Encounter for administration of vaccine (ICD-10 - Z23) VIS provided to patient HD influenza vaccine administered patient counseled 04/17/2024 Type 2 diabetes mellitus without complication, without long-term current use of insulin (ICD-10 - E11.9) 1. Diabetes: A1c has been stable with diet control. Will recheck today 2. Hypertension: Well-controlled on current valsartan and amlodipine. Will maintain present dosing 3. Hyperlipidemia: Update profile on atorvastatin. 4. Depression: Stable on present citalopram and as needed trazodone. Will maintain 04/17/2024 Essential (primary) hypertension (ICD-10 - I10) 1. Diabetes: A1c has been stable with diet control. Will recheck today 2. Hypertension: Well-controlled on current valsartan and amlodipine. Will maintain present dosing 3. Hyperlipidemia: Update profile on atorvastatin. 4. Depression: Stable on present citalopram and as needed trazodone. Will maintain 03/07/2025 Mixed hyperlipidemia (ICD-10 - E78.2) 1. Hypertension: Well-controlled on present therapy. No changes made today 2. Type 2 diabetes mellitus: Will update A1c with current diet control 3. Hyperlipidemia: Will update profile on atorvastatin 4. Rash: Appears resolved. Will taper off betamethasone ointment 11/05/2024 Persistent depressive disorder (ICD-10 - F34.1) 1. Hypertension: Stable on present regimen. No changes made today 2. Diabetes: We will update A1c on current diet control. She has been stable in recent months 3. Depression: Feels mood is well-controlled on citalopram. Will continue with present dosing 07/06/2024 Persistent depressive disorder (ICD-10 - F34.1) 1 type 2 diabetes mellitus: Stable on present diet regimen. We will update A1c today 2. Hypertension: Well-controlled on present therapy. No changes made today 3. Depression: Stable on citalopram and sleeping well with trazodone. Will maintain present dosing 04/17/2024 Mixed hyperlipidemia (ICD-10 - E78.2) 1. Diabetes: A1c has been stable with diet control. Will recheck today 2. Hypertension: Well-controlled on current valsartan and amlodipine. Will maintain present dosing 3. Hyperlipidemia: Update profile on atorvastatin. 4. Depression: Stable on present citalopram and as needed trazodone. Will maintain 04/17/2024 Persistent depressive disorder (ICD-10 - F34.1) 1. Diabetes: A1c has been stable with diet control. Will recheck today 2. Hypertension: Well-controlled on current valsartan and amlodipine. Will maintain present dosing 3. Hyperlipidemia: Update profile on atorvastatin. 4. Depression: Stable on present citalopram and as needed trazodone. Will maintain 03/07/2025 Rash (ICD-10 - R21) 1. Hypertension: Well-controlled on present therapy. No changes made today 2. Type 2 diabetes mellitus: Will update A1c with current diet control 3. Hyperlipidemia: Will update profile on atorvastatin 4. Rash: Appears resolved. Will taper off betamethasone ointment 11/05/2024 Encounter for immunization (ICD-10 - Z23) Pneumococcal Conjugate 20 given today. Patient counseled and given VIS sheet for review. 1. Hypertension: Stable on present regimen. No changes made today 2. Diabetes: We will update A1c on current diet control. She has been stable in recent months 3. Depression: Feels mood is well-controlled on citalopram. Will continue with present dosing PLAN OF TREATMENT Future Test Test Name Order Date CBC With Differential/Platelet-[id number] Lipid Panel-[id number] 03/07/2025 Comp. Metabolic Panel ([id number] 2024 Next Appt Details Provider Name:JULIUS ROBERTS , 05/29/2025 01:30:00 PM, [address] [place] [address], [phone], Provider Name:JULIUS ROBERTS , 05/29/2025 02:00:00 PM, [address] [place] [address], [phone], Insurance Providers Payer Name Payer Address Payer Phone Subscriber Number Group Number Insured Name Patient Relationship to Insured Coverage Start Date Coverage End Date [facility]TE [address] [address] [place] [address] [id number] BRAVO HOFFMANN Self - patient is the insured [address] [employer] [address] [place] [address] [id number] BRAVO HOFFMANN Self - patient is the insured [facility] MED[facility] SUPPLEMENT [address] [place] [address] [id number] BRAVO HOFFMANN Self - patient is the insured 9 MEDICAL (GENERAL) HISTORY Medical History History ICD Code cardiovascular, Disease : Elevated lipid s, cardiovascular, Disease : hypertension, gastrointestinal, Disease : obesity, metabolic/endocrine, Disease : diabetes mellitus, neurologic, Disease : Trigeminal Neuralg ia, Procedure Year : 1993 Problems: Benign essential h ypertension, Added Date: 04/20/2015, Onset Date: 09/14/2009:Active Problems: Malaise and fatigu e, Added Date: 04/20/2015, Onset Date: 11/13/2010:Active Problems: Osteoporosis, Adde d Date: 04/20/2015, Onset Date: 09/14/2009:Active Problems: Trigeminal neuralg ia, Added Date: 04/20/2015, Onset Date: 01/22/2011:Active HCP: Deborah Munoz Dtr Surgical History Surgery Date(Month/Year) musculoskeletal, Disease : F racure Fibia left, Sx_Procedure : casting 2000 neurologic, Disease : Meningioma, Sx_Pro cedure : resection 1990 women[facility], Disease : Fibroids, Sx_P rocedure : Hysterectomy 1974
--- OUTSIDE RECORDS SUMMARY | 2025-04-17 07:45 | XMS_ITS | Patient Health Record ---
Author Organization [facility] Address [address] [place] [address] Care Team Providers Care Chassis Engineer Name Role Phone Ladarius Allen MD Primary Care Provider Unavailab Diomedes Painting Unavailable [phone] Reason For Referral No Information Medications Medication [...] W/U Status Risk Notes Problem Pre-surgery evaluation (443250776) Other specified pre-operative examination (V72.83) Active confirmed Problem Family History of Cancer of Colon (Situation) (119591881) Family history of colon cancer (V16.0) Active confirmed Problem Colon cancer screening (502061169) Colon cancer screening (V76.51) Active confirmed Problem Hypertension (89009611) Hypertension (401.9) Active confirmed Plan Of Treatment Future Test Test Name Order Date COLONOSCOPY 10/03/2014 Insurance Providers Payer Name Payer Address Payer Phone Subscriber Number Group Number Insured Name Patient Relationship to Insured Coverage Start Date Coverage End Date MEDICARE OF [place] [address] [place] [address] [id number] BRAVO HOFFMANN Self - patient is the insured [facility] SU[facility]AL [facility] [address] [place] [address] [id number] BRAVO HOFFMANN Self - patient is the insured Medical (General) History Medical History History ICD Code Colonoscopy 10-02-2009 and 200 4 neg except for hyperplastic polyps, diverticulosis, and internal hemorrhoids Hypertension Hyperlipidemia Depression Denies [place],DM,CVA,Lung disease,renal dise ase Surgical History Surgery Date(Month/Year) complete hysterectomy surgery on left leg for a fracture
[2025-04-17 08:00] LABS: MANUAL DIFF FLAG NO
[2025-04-17 08:33] LABS: Hematocrit 42.3 % (37.0-47.0); Hemoglobin 14.6 g/dl (12.0-16.0); Imm Gran Abs Auto 0.01 X10*3/uL (0.00-0.03); Imm Gran Pct Auto 0.2 % (0.0-0.4); Lymphocytes Absolute Auto 1.6 X10*3/uL (1.2-4.9); Mean Corpuscular HGB Conc 34.5 g/dl (31.0-35.0); Mean Corpuscular Hemoglobin 31.5 pg (27.0-33.0); Mean Corpuscular Volume 91.4 fL (80.0-98.0); NRBC Abs Auto 0.000 X10*3/uL (0.0-0.012); NRBC Pct Auto 0.0 /100WBC (0.0-0.2); Platelet Count 279 X10*3/uL (160-400); Red Blood Count 4.63 X10*6/uL (4.20-5.50); White Blood Count 5.9 X10*3/uL (4.8-10.8)
[2025-04-17 09:10] LABS: Alanine Aminotransferase 17 U/L (0-31); Albumin Level 3.9 g/dL (3.5-5.0); Alkaline Phosphatase 69 U/L (39-117); Anion Gap 10 (12-20); Aspartate Amino Transferase 29 U/L (5-31); Blood Urea Nitrogen 24 mg/dL (9-16); Calcium 10.3 mg/dL (8.4-10.2); Carbon Dioxide 30 mmol/L (22-29); Chloride 106 mmol/L (96-108); Cholesterol 113 mg/dL (<200); Estimated Glomerular Filt Rate > 60; HDL Cholesterol 38 mg/dL (>40); Potassium 3.9 mmol/L (3.3-5.1); Sodium 142 mmol/L (135-145); Total Protein 7.5 g/dL (6.5-8.0); Triglycerides 88 mg/dL (<150)
== END 2025-04-17 07:42 | disposition home or self-care (01) ==
LOC: HO.LAB 07:41
PROVIDERS: PCP Internal Medicine; Visit Provider Internal Medicine
DX: I10 Essential (primary) hypertension (principal); E78.2 Mixed hyperlipidemia
CPT/HCPCS: 36415; 80053; 80061; 85025